=== PATIENT | female | born 1990 | race Caucasian/White ===

== ENCOUNTER 2020-01-29 18:27 | Emergency (ER) | payer OTHER ==
--- NOTE | 2020-01-29 18:46 | ER Document Report ---
ED Medical Screen (RME) - General Chief Complaint: Abdominal Pain Stated Complaint: FLANK PAIN Time Seen by Provider: 01/29/20 18:38 Notes: HPI: 29-year-old female presenting with 2 to 3 weeks of right back pain, pain in the right upper quadrant under the ribs. Patient went to an urgent care, states they told her it might be rib inflammation put her on anti-inflammatories which did not change the discomfort. Initially it was somewhat intermittent but has been more constant over the last 3 to 4 days. Denies nausea vomiting. Pain is worse with certain positions and movements. Went back to the urgent care today and they told her she had bilirubin in her urine but they could not do further testing referred her to PCP who could not see her so she now presents for evaluation in the ER PHYSICAL EXAMINATION: Patient with moderate tenderness directly in the right upper quadrant on palpation I have greeted and performed a rapid initial assessment of this patient. A comprehensive ED assessment and evaluation of the patient, analysis of test results and completion of medical decision making process will be conducted by an additional ED providers. - Related Data Allergies/Adverse Reactions: No Known Allergies Allergy (Verified 01/29/20 18:38) Home Medications: vitamins Past Medical History - Social History Frequency of alcohol use: None Drug Abuse: None Physical Exam - Vital signs Vitals: Temp Pulse Resp BP Pulse Ox 98.2 F 93 20 150/97 H 99 01/29/20 18:30 01/29/20 18:30 01/29/20 18:30 01/29/20 18:30 01/29/20 18:30 Course - Vital Signs Vital signs: Temp Pulse Resp BP Pulse Ox 98.2 F 93 20 150/97 H 99 01/29/20 18:30 01/29/20 18:30 01/29/20 18:30 01/29/20 18:30 01/29/20 18:30
[2020-01-29 19:04] LABS: ABSOLUTE EOSINOPHILS # (AUTO) 0.1 10^3/uL (0.0-0.6); ABSOLUTE LYMPHOCYTES (AUTO) 1.6 10^3/uL (0.5-4.7); ABSOLUTE MONOCYTES (AUTO) 0.5 10^3/uL (0.1-1.4); ABSOLUTE NEUT (AUTO) 4.5 10^3/uL (1.7-8.2); BASOPHILS % (AUTO) 0.4 % (0-2); EOSINOPHILS % (AUTO) 1.3 % (0-6); HEMATOCRIT 38.7 % (36.0-47.0); HEMOGLOBIN 13.2 g/dL (12.0-15.5); LYMPHOCYTES % (AUTO) 24.2 % (13-45); MEAN CORPUSCULAR HGB CONC 34.1 g/dL (32.0-36.0); MEAN CORPUSCULAR VOLUME 82 fl (80-97); MONOCYTES % (AUTO) 7.6 % (3-13); PLATELET COUNT 189 10^3/uL (150-450); RED BLOOD COUNT 4.71 10^6/uL (3.72-5.28); RED CELL DISTRIBUTION WIDTH 14.4 % (11.5-14.0); SEGMENTED NEUTROPHILS % (AUTO) 66.5 % (42-78); TOTAL CELLS COUNTED % (AUTO) 100 %; WHITE BLOOD COUNT 6.8 10^3/uL (4.0-10.5)
[2020-01-29 19:09] LABS: APPEARANCE,URINE CLEAR; BILIRUBIN,URINE NEGATIVE (NEGATIVE); COLOR,URINE STRAW; GLUCOSE, URINE NEGATIVE (NEGATIVE); KETONES,URINE 20 mg/dL (NEGATIVE); LEUKOCYTE ESTERASE,URINE NEGATIVE (NEGATIVE); NITRITE,URINE NEGATIVE (NEGATIVE); PROTEIN,URINE NEGATIVE (NEGATIVE); URINE SPECIFIC GRAVITY 1.008; UROBILINOGEN,URINE NEGATIVE mg/dL (<2.0)
[2020-01-29 19:23] LABS: ALBUMIN 4.7 g/dL (3.5-5.0); ALKALINE PHOSPHATASE 57 U/L (38-126); ANION GAP 10 (5-19); ASPARTATE AMINO TRANSFERASE 23 U/L (14-36); BILIRUBIN,TOTAL 0.7 mg/dL (0.2-1.3); BLOOD UREA NITROGEN 12 mg/dL (7-20); CALCIUM 9.7 mg/dL (8.4-10.2); CARBON DIOXIDE 25 mmol/L (22-30); CHLORIDE 103 mmol/L (98-107); GLUCOSE 90 mg/dL (75-110); POTASSIUM 3.6 mmol/L (3.6-5.0); TOTAL PROTEIN 7.6 g/dL (6.3-8.2)
--- NOTE | 2020-01-29 19:53 | ER Document Report ---
ED General - General Chief Complaint: Abdominal Pain Stated Complaint: FLANK PAIN Time Seen by Provider: 01/29/20 18:38 Primary Care Provider: SAMIRA DÍAZ FNP-C [Primary Care Provider] - Follow up as needed Mode of Arrival: Ambulatory Information source: Patient Notes: 01/29/20 18:39 - ED Nursing Note by DIOGENES NGUYỄN Num: [id number] : 1990 Patient Age: 29 Pt presents to the ED for c/o abd pain. Pt states she started with R back/flank pain 1month ago that has progressively worsened, reports pain is now in her RUQ region described as constantly dull with intermittent stabbing and sharp pains. Pt states certain movements of her torso exacerbate pain in her abdomen. Pt states she was seen at urgent care and worked up for possible inflamed ribs and prescribed steroid pack, muscle relaxers and anti-inflammatories without relief. Reports she tried to follow up with her PCP today but appt was cancelled last minute. Denies any change is pain after eating. No c/o nausea, vomiting, fevers, diarrhea or any other complaints. Pt is A&Ox4, breaths e/u, NAD. Initialized on 01/29/20 18:39 - END OF NOTE [facility] notes HPI: 29-year-old female presenting with 2 to 3 weeks of right back pain, pain in the right upper quadrant under the ribs. Patient went to an urgent care, states they told her it might be rib inflammation put her on anti-inflammatories which did not change the discomfort. Initially it was somewhat intermittent but has been more constant over the last 3 to 4 days. Denies nausea vomiting. Pain is worse with certain positions and movements. Went back to the urgent care today and they told her she had bilirubin in her urine but they could not do further testing referred her to PCP who could not see her so she now presents for evaluation in the ER PHYSICAL EXAMINATION: Patient with moderate tenderness directly in the right upper quadrant on palpation my notes 29-year-old female arrives with 3-week history of right CVA pain with radiation to right upper quadrant pain. She reports for the last 3 days the pain is been very intense. She denies any shingles rash fever chills or any history of chickenpox. She was seen at [facility] and placed on Mobic steroids and muscle relaxers. She reports the Mobic was okay and had no side effects and worked fairly well but the muscle relaxers that she took at nighttime just made her very tired. Patient denies any nausea vomiting hematuria dysuria her CBC CMP and urinalysis were negative except for. Ketones and small amount of blood. - HPI Onset: Other - x 3 weeks Onset/Duration: Sudden Quality of pain: Achy Severity: Moderate Pain Level: 2 Associated symptoms: None Exacerbated by: Denies Relieved by: Denies Similar symptoms previously: No Recently seen / treated by doctor: Yes - Related Data Allergies/Adverse Reactions: No Known Allergies Allergy (Verified 01/29/20 18:38) Home Medications: vitamins Past Medical History - General Information source: Patient - Social History Smoking Status: Never Smoker Cigarette use (# per day): No Chew tobacco use (# tins/day): No Smoking Education Provided: No Frequency of alcohol use: None Drug Abuse: None Lives with: Family Family History: Reviewed & Not Pertinent Patient has suicidal ideation: No Patient has homicidal ideation: No Review of Systems - Review of Systems Constitutional: No symptoms reported EENT: No symptoms reported Cardiovascular: No symptoms reported Respiratory: No symptoms reported Gastrointestinal: See HPI, Abdominal pain Genitourinary: No symptoms reported Female Genitourinary: No symptoms reported Musculoskeletal: See HPI, Back pain Skin: No symptoms reported Hematologic/Lymphatic: No symptoms reported Neurological/Psychological: No symptoms reported Physical Exam - Vital signs Vitals: Temp Pulse Resp BP Pulse Ox 98.2 F 93 20 150/97 H 99 01/29/20 18:30 01/29/20 18:30 01/29/20 18:30 01/29/20 18:30 01/29/20 18:30 Interpretation: Hypertensive - General General appearance: Alert - HEENT Head: Normocephalic, Atraumatic Eyes: Normal Pupils: PERRL Mouth/Lips: Normal Mucous membranes: Normal Pharynx: Normal Neck: Normal - Respiratory Respiratory status: No respiratory distress Chest status: Nontender Breath sounds: Normal Chest palpation: Normal - Cardiovascular Rhythm: Regular Heart sounds: Normal auscultation Murmur: No - Abdominal Inspection: Normal Distension: No distension Bowel sounds: Normal Tenderness: Tender - RUQ pain - Rectal Hemorrhoids: Other - deferred - Genitourinary Bimanuel exam: Other - deferred - Back Back: CVA tenderness - on right - Extremities General upper extremity: Normal inspection, Nontender, Normal color, Normal ROM, Normal temperature General lower extremity: Normal inspection, Nontender, Normal color, Normal ROM, Normal temperature, Normal weight bearing. No: Zee's sign - Neurological Neuro grossly intact: Yes Cognition: Normal Orientation: AAOx4 [place] Coma Scale Eye Opening: Spontaneous Karin Coma Scale Verbal: Oriented Karin Coma Scale Motor: Obeys Commands [place] Coma Scale Total: 15 Speech: Normal Motor strength normal: LUE, RUE, LLE, RLE Sensory: Normal - Psychological Associated symptoms: Normal affect - Skin Skin Temperature: Warm Skin Moisture: Dry Course - Vital Signs Vital signs: Temp Pulse Resp BP Pulse Ox 98.2 F 93 20 150/97 H 99 01/29/20 18:30 01/29/20 18:30 01/29/20 18:30 01/29/20 18:30 01/29/20 18:30 - Laboratory Result Diagrams: 01/29/20 18:55 01/29/20 18:55 Laboratory results interpreted by me: 01/29/20 01/29/20 18:55 18:55 RDW 14.4 H Urine Ketones 20 H Urine Blood SMALL H - Diagnostic Test Radiology reviewed: Reports reviewed - This is physical Radiology results interpreted by me: 01/29/20 21:[address] abd pel Critical Care Note - Critical Care Note Total time excluding time spent on procedures (mins): 90 Discharge - Discharge Clinical Impression: Right upper quadrant abdominal pain Back pain Qualifiers: Back pain location: thoracic back pain Chronicity: acute Back pain laterality: right Qualified Code(s): M54.6 - Pain in thoracic spine Condition: Good Disposition: HOME, SELF-CARE Instructions: Abdominal Pain ([facility]) Additional Instructions: Follow up with personal doctor if symptoms persist your ultrasound and CT were negative tonight. We will empirically treat with acyclovir and with Lodine for your pain. Encourage fluids to help resolve urine ketones. Prescriptions: Etodolac [Lodine] 400 mg PO BID #20 tablet Acyclovir [Zovirax 200 mg Capsule] 200 mg PO TID 7 Days #21 capsule Referrals: SMAIRA DÍAZ, [facility] [Primary Care Provider] - Follow up as needed
--- NOTE | 2020-01-29 20:16 | RADIOLOGY REPORT (SQ) ---
US ABDOMEN LIMITED HISTORY: Right upper quadrant pain. COMPARISON: None. TECHNIQUE: Grayscale and color Doppler imaging of the right upper quadrant was performed. FINDINGS: The liver has normal echotexture without focal lesion identified. The main portal vein has normal hepatopetal flow. No shadowing gallstones are seen. No pericholecystic fluid or gallbladder wall thickening. The common bile duct is normal caliber. The visualized portions of the pancreas are unremarkable. No hydronephrosis or shadowing renal stones are identified. The right kidney is normal in size. The visualized portions of the IVC and aorta are patent. IMPRESSION: Unremarkable study.
--- NOTE | 2020-01-29 21:08 | RADIOLOGY REPORT (SQ) ---
EXAM DESCRIPTION: CT ABDOMEN PELVIS WITH IV CONTRAST COMPLETED DATE/TME: 01/29/2020 20:06 CLINICAL INDICATION: 29-year-old female with RIGHT costovertebral angle pain. COMPARISON: None. EXAMINATION: CT of the abdomen and pelvis was performed following intravenous administration of contrast. Oral contrast was not administered. Multiplanar reformatted images were provided. This exam was performed according to our departmental dose optimization program which includes use of automated exposure control, adjustment of the mA and/or kV according to patient size and/or use of iterative reconstruction technique. FINDINGS: Chest: Evaluation through the lung bases reveals no focal opacity, pleural effusion or pneumothorax. Heart size is within normal limits. No pericardial effusion. Abdomen and pelvis: The liver, gallbladder, pancreas, spleen, bilateral kidneys and bilateral adrenal glands are within normal limits. Focus of hypoattenuation is identified at the level of the falciform ligament suggesting focal fatty steatosis. The vessels are patent and normal in caliber. No abdominopelvic lymph nodes are noted to be pathologically enlarged by CT measurement criteria. The bowel is within normal limits without abnormal bowel wall thickness or bowel dilation. No free air. No organizing abdominopelvic fluid collections. The appendix is within normal limits. The uterus reveals retroverted positioning. Fluid present within the vaginal canal and endometrium. Phillips present within the vaginal canal. Free fluid present within the dependent pelvis, a nonspecific finding which may be physiologic in a patient this age. The osseous structures are within normal limits. IMPRESSION: 1. No specific acute intra-abdominal findings are noted to suggest etiology of the patient's abdominal pain. 2. Free fluid present within the dependent pelvis, a nonspecific finding which may be physiologic in a patient this age.
[2020-01-30] MEDS ORDERED: HYDROCODONE/ACETAMINOPHEN 5-325 MG (6 TAB/ER DISP) PO PRN (00:59)
[2020-01-30 01:08] VITALS: BP 124/83
== END 2020-01-30 01:06 | disposition home or self-care (01) ==
LOC: ER 18:27
DX: R10.11 Right upper quadrant pain (principal); R10.811 Right upper quadrant abdominal tenderness; M54.6 Pain in thoracic spine
CPT/HCPCS: 36415; 74177; 76705; 80053; 81001; 81025; 83690; 85025; 99284